=== PATIENT | male | born 1965 | race Two or more races ===

== ENCOUNTER 2018-10-12 00:24 | Emergency (ER) | payer BC ==
[2018-10-12] MEDS ORDERED: MAG HYDROX/AL HYDROX/SIMETH 30 ML UNIT-DOSE CUP PO ONE (00:36)
[2018-10-12] MEDS ORDERED: FAMOTIDINE 20 MG/50 ML IVPB 20 MG/50 ML MG IVPB ONE ×2 (00:36→00:45)
[2018-10-12] MEDS ORDERED: ACETAMINOPHEN 1000 MG/100 ML VIAL (NON FORMULARY) IVPB ONE (00:36)
--- NOTE | 2018-10-12 00:42 | PDOC ---
History of Present Illness - General History Source: Patient Exam Limitations: Clinical Condition - History of Present Illness Initial Comments: 10/12/18 00:37 Patient with no significant past medical history present with complaint of 2 hours history of tightening midsternal chest pain after doing situps and pushup exercises on home. Patient reported pain is similar to pains he usually get when he does work out but worsening this time after doing a workout home. Patient reported pain is localized to midsternal left chest area. Patient denies nausea, vomiting, numbness or tingling sensation, headache or dizziness. Timing/Duration: 1-3 hours <Oswaldo Lopez - Last Filed: 10/12/18 05:10> <Jairo Johnson - Last Filed: 10/12/18 06:40> - General Chief Complaint: Chest Pain Stated Complaint: CHEST PAIN Time Seen by Provider: 10/12/18 00:31 Past History <Oswaldo Lopez - Last Filed: 10/12/18 05:10> <Jairo Johnson - Last Filed: 10/12/18 06:40> - Past Medical History Allergies/Adverse Reactions: Allergies Allergy/AdvReac Type Severity Reaction Status Date / Time No Known Allergies Allergy Verified 10/12/18 00:28 Review of Systems - Review of Systems Able to Perform ROS?: Yes Is the patient limited Prydeinig proficient: No Constitutional: No: Weakness HEENTM: No: Recent change in vision Cardiac (ROS): Yes: Symptoms Reported, See HPI, Chest Pain (mid-sternum and left chest), Chest Tightness (left chest area). No: Edema, Irregular Heart Rate , Lightheadedness, Palpitations, Syncope, Other ABD/GI: No: Nausea, Vomiting Neurological: Yes: See HPI. No: Headache, Numbness, Paresthesia, Tingling, Dizziness All Other Systems: Reviewed and Negative <Oswaldo Lopez - Last Filed: 10/12/18 05:10> *Physical Exam - Physical Exam Comments: 10/12/18 00:40 GENERAL: Well developed, well nourished. Awake and alert. No acute distress. HEENT: Normocephalic, atraumatic.No conjunctival pallor. Sclera are non-icteric. NECK: Supple. Full ROM. No JVD. Carotid pulses 2+ and symmetric, without bruits. CARDIOVASCULAR: mild reproduceable tenderness to lower mid-sterm. Regular rate and rhythm. No murmurs, rubs, or gallops. Distal pulses are 2+ and symmetric. PULMONARY: No evidence of respiratory distress. Lungs clear to auscultation bilaterally. No wheezing, rales or rhonchi. ABDOMINAL: Soft. Non-tender. Non-distended. No rebound or guarding. No organomegaly. Normoactive bowel sounds. MUSCULOSKELETAL Normal range of motion at all joints. EXTREMITIES: No cyanosis. No clubbing. No edema. SKIN: Warm and dry. Normal capillary refill. NEUROLOGICAL: Alert, awake, appropriate. Normal speech. Gait is normal without ataxia. PSYCHIATRIC: Cooperative. Good eye contact. Appropriate mood and affect. General Appearance: Yes: Nourished, Appropriately Dressed. No: Apparent Distress <Oswaldo Lopez - Last Filed: 10/12/18 05:10> - Vital Signs Last Vital Signs Temp Pulse Resp BP Pulse Ox 98.1 F 76 18 156/107 H 100 10/12/18 00:24 10/12/18 03:21 10/12/18 03:21 10/12/18 03:21 10/12/18 03:21 <Jairo Johnson - Last Filed: 10/12/18 06:40> Moderate Sedation - Procedure Monitoring Vital Signs: Procedure Monitoring Vital Signs Temperature 98.1 F 10/12/18 00:24 Pulse Rate 76 10/12/18 03:21 Respiratory Rate 18 10/12/18 03:21 Blood Pressure 156/107 H 10/12/18 03:21 O2 Sat by Pulse Oximetry (%) 100 10/12/18 03:21 <Jairo Johnson - Last Filed: 10/12/18 06:40> ED Treatment Course - LABORATORY CBC & Chemistry Diagram: 10/12/18 00:34 10/12/18 01:07 <Oswaldo Lopez - Last Filed: 10/12/18 05:10> - LABORATORY CBC & Chemistry Diagram: 10/12/18 00:34 10/12/18 01:07 - ADDITIONAL ORDERS Additional order review: Laboratory Results 10/12/18 10/12/18 10/12/18 03:21 01:07 00:34 Sodium 137 Cancelled Potassium 4.5 Cancelled Chloride 102 Cancelled Carbon Dioxide 30 Cancelled Anion Gap 6 L Cancelled BUN 19 H Cancelled Creatinine 1.1 Cancelled Creat Clearance w eGFR > 60 Cancelled Random Glucose 106 Cancelled Calcium 9.2 Cancelled Total Bilirubin 0.6 Cancelled AST 27 Cancelled ALT 44 Cancelled Alkaline Phosphatase 58 Cancelled Creatine Kinase 398 H Creatine Kinase Index 0.8 CK-MB (CK-2) 3.3 Troponin I < 0.02 < 0.02 Cancelled Total Protein 7.6 Cancelled Albumin 3.9 Cancelled 10/12/18 00:34 RBC 5.40 MCV 86.2 MCHC 33.8 RDW 13.9 MPV 9.2 Neutrophils % 70.4 Lymphocytes % 21.4 Monocytes % 6.3 Eosinophils % 1.4 Basophils % 0.5 - RADIOLOGY Radiology Studies Ordered: Category Date Time Status CXRPORT [CHEST X-RAY PORTABLE*] [RAD] Stat Radiology 10/12/18 00:30 Taken - Medications Given in the ED: ED Medications Discontinued Medications Generic Name Dose Route Start Last Admin Trade Name Joeyq PRN Reason Stop Dose Admin Acetaminophen 1,000 mg 10/12/18 00:36 10/12/18 00:54 Ofirmev Injection - IVPB 10/12/18 00:37 1,000 mg ONCE ONE Administration Al Hydroxide/Mg Hydroxide 30 ml 10/12/18 00:36 10/12/18 00:54 Mylanta Oral Suspension - PO 10/12/18 00:37 30 ml ONCE ONE Administration Famotidine/Sodium Chloride 20 mg in 50 mls @ 100 mls/hr 10/12/18 00:36 01:26 Pepcid 20 Mg Premixed Ivpb - IVPB 10/12/18 01:05 100 mls/hr ONCE ONE Administration <Jairo Johnson - Last Filed: 10/12/18 06:40> Medical Decision Making - Medical Decision Making 10/12/18 00:42 She with no significant past medication present with complaint of 2 hour history of midsternal left chest pain after doing workout exercise home. Exam significant for reproducible mild midsternal Pain otherwise unremarkable exam. EKG shows normal sinus rhythm. Patient in no acute cardiac distress. CBC, CMP and cardiac profile ordered. Chest x-ray ordered. Tylenol 1 g IV ordered for pain. Pepcid 20 mg IV and Maalox 30 mL ordered. Treat based on imaging lab results 10/12/18 02:38 CBC, chemistry and cardiac profile normal. CXR shows no acute pathology. Patient report feeling better with IV Tylenol with pepcis and maalox. Will repeat cardiac profile 2nd lab 3hrs apart. Patient symptoms likely MSK and will be discharge on NSAIDS if negative rpt cardiac profile 10/12/18 04:25 repeat troponins negative. Patient report improved symptoms and stable for discharge <Oswaldo Lopez - Last Filed: 10/12/18 05:10> - Medical Decision Making I reviewed the case of the mid-level practitioner and was available for consultation while in the emergency department <Jairo Johnson - Last Filed: 10/12/18 06:40> *DC/Admit/Observation/Transfer - Discharge Dispostion Decision to Admit order: No <Oswaldo Lopez - Last Filed: 10/12/18 05:10> <Jairo Johnson - Last Filed: 10/12/18 06:40> Diagnosis at time of Disposition: Costochondral chest pain - Discharge Dispostion Disposition: HOME Condition at time of disposition: Stable - Referrals Referrals: Lisa Childress MD [Primary Care Provider] - - Patient Instructions Printed Discharge Instructions: DI for Costochondritis, DI for Chest Pain Additional Instructions: Your labs and EKG was normal. Your symptom is most likely musculoskeletal related. Take motrin as needed for pain. Rest. Come back to ER if worsening chest pain, shortness of breathe, dizziness, Headache
[2018-10-12 00:44] VITALS: TEMP 98.1; BMI 33.2
[2018-10-12] MEDS ORDERED: ACETAMINOPHEN INJECTION 100 ML IVPB ONE (00:45)
[2018-10-12 00:47] LABS: BASO % 0.5 % (0-2.0); EOS % 1.4 % (0-4.5); HEMATOCRIT 46.6 % (35.4-49); HEMOGLOBIN 15.7 GM/dL (11.7-16.9); LYMPH % 21.4 % (8-40); MCH 29.1 pg (25.7-33.7); MCHC 33.8 g/dl (32.0-35.9); MEAN CELL VOLUME 86.2 fl (80-96); MEAN PLT VOLUME 9.2 fl (7.5-11.1); MONO % 6.3 % (3.8-10.2); NEUT % 70.4 % (42.8-82.8); PLATELET COUNT 205 K/MM3 (134-434); RDW 13.9 % (11.9-15.9); WHITE BLOOD COUNT 10.3 K/mm3 (4.0-10.0)
[2018-10-12] MEDS ORDERED: MAG HYDROX/AL HYDROX/SIMETH 30 ML UNIT-DOSE CUP ONE (00:52)
[2018-10-12 01:55] LABS: ALBUMIN 3.9 g/dl (3.4-5.0); ALK PHOS 58 U/L (45-117); ANION GAP 6 MMOL/L (8-16); BILIRUBIN,TOTAL 0.6 mg/dL (0.2-1); BLOOD UREA NITROGEN 19 mg/dL (7-18); CALCIUM 9.2 mg/dL (8.5-10.1); CHLORIDE 102 mmol/L (98-107); CO2 30 mmol/L (21-32); CREATININE 1.1 mg/dL (0.55-1.3); GLUCOSE,RANDOM 106 mg/dL (74-106); POTASSIUM 4.5 mmol/L (3.5-5.1); SGOT/AST 27 U/L (15-37); SGPT/ALT 44 U/L (13-61); SODIUM 137 mmol/L (136-145); TOT PROT 7.6 g/dl (6.4-8.2)
[2018-10-12 03:23] VITALS: BP 156/107; PULSE 76
--- NOTE | 2018-10-13 19:06 | EKG ---
Test Reason : Blood Pressure : / mmHG Vent. Rate : 099 BPM Atrial Rate : 099 BPM P-R Int : 134 ms QRS Dur : 078 ms QT Int : 356 ms P-R-T Axes : 022 -20 006 degrees QTc Int : 456 ms NORMAL SINUS RHYTHM MINIMAL VOLTAGE CRITERIA FOR LVH, MAY BE NORMAL VARIANT BORDERLINE ECG NO PREVIOUS ECGS AVAILABLE Confirmed by DIANA WILKERSON MD ([id number]) on 10/13/2018 7:06:17 PM Referred By: Confirmed By:DIANA WILKERSON MD
== END 2018-10-12 04:26 | disposition home or self-care (01) ==
LOC: JER 00:24
PROC: 3E033GC Introduction of Other Therapeutic Substance into Peripheral Vein, Percutaneous Approach (ICD-10-PCS; principal; 2018-10-12)
PROC: 3E033NZ Introduction of Analgesics, Hypnotics, Sedatives into Peripheral Vein, Percutaneous Approach (ICD-10-PCS; 2018-10-12)
DX: M94.0 Chondrocostal junction syndrome [Tietze] (principal); X50.0XXA Overexertion from strenuous movement or load, initial encounter; Y93.B2 Activity, push-ups, pull-ups, sit-ups; Y92.038 Other place in apartment as the place of occurrence of the external cause; Y99.8 Other external cause status
CPT/HCPCS: 36415; 71045-TC-FY; 80053; 82550; 82553; 84484; 85025; 93005; 93010; 99284-25; J0131

== ENCOUNTER 2024-11-22 20:28 | Observation (INO) | payer BC, OTHER ==
[2024-11-22] MEDS ORDERED: ALPRAZolam 1 MG TABLET PO PRN (22:14)
[2024-11-22] MEDS ORDERED: ALPRAZolam 0.25 MG TABLET ONE ×2 (22:15→23:48)
[2024-11-22] MEDS: ALPRAZolam 1 MG TABLET PO ONE ×2 (22:20→23:51)
[2024-11-22 22:31] LABS: HEMATOCRIT 46.9 % (35.4-49); HEMOGLOBIN 16.6 G/dL (11.7-16.9); MCH 30.7 pg (25.7-33.7); MCHC 35.3 g/dl (32.0-35.9); MEAN CELL VOLUME 87.1 fl (80-96); MEAN PLT VOLUME 9.2 fl (7.5-11.1); PLATELET COUNT 253.9 10^3/uL (134-434); RBC 5.39 10^6/uL (4.00-5.60); RDW 13.6 % (11.9-15.9); WHITE BLOOD COUNT 10.2 10^3/uL (4.0-10.8)
[2024-11-22 22:49] LABS: INR 1.08 (0.83-1.09); PROTHROMBIN TIME (PATIENT) 12.3 SEC (9.7-13.0)
[2024-11-22 22:52] LABS: ACTIVATED PTT 35.1 SECONDS (25.2-36.5)
[2024-11-22 22:58] LABS: CHOLESTEROL 236 mg/dL (50-200); HDL CHOLESTEROL 42 mg/dL (40-60)
[2024-11-22 23:00] LABS: ALBUMIN 4.6 g/dl (3.4-5.0); BILIRUBIN,TOTAL 0.8 mg/dl (0.2-1); CALCIUM 9.8 mg/dl (8.5-10.1); POTASSIUM 4.3 mmol/L (3.5-5.1); TOT PROT 8.3 g/dl (6.4-8.2)
[2024-11-22 23:01] LABS: LDL CHOLESTEROL (ONLY SJRH) 171 mg/dL (5-100)
[2024-11-23 01:42] VITALS: BMI 34.0
[2024-11-23 07:37] LABS: ALBUMIN 4.2 g/dl (3.4-5.0); BILIRUBIN,TOTAL 0.6 mg/dl (0.2-1); CALCIUM 9.8 mg/dl (8.5-10.1); CREATININE 2.1 mg/dl (0.6-1.3); POTASSIUM 3.9 mmol/L (3.5-5.1); TOT PROT 7.4 g/dl (6.4-8.2)
[2024-11-23 09:38] LABS: BASO % 0.3 % (0-2.0); EOS % 1.5 % (0-4.5); HEMATOCRIT 45.9 % (35.4-49); HEMOGLOBIN 15.1 GM/dL (11.7-16.9); LYMPH % 16.7 % (8-40); MCH 29.2 pg (25.7-33.7); MEAN CELL VOLUME 88.4 fl (80-96); MEAN PLT VOLUME 10.5 fl (7.5-11.1); MONO % 10.8 % (3.8-10.2); NEUT % 70.7 % (42.8-82.8); PLATELET COUNT 252 10^3/uL (134-434); RBC 5.19 M/mm3 (4.00-5.60); WHITE BLOOD COUNT 13.3 K/mm3 (4.0-10.0)
[2024-11-23] MEDS ORDERED: ASPIRIN 300 MG SUPP.RECT RC ONE (10:45)
[2024-11-23] MEDS: ASPIRIN 325 MG ENTERIC COATED TABLET (FP) PO ONE (10:53)
[2024-11-23] MEDS: ATORVASTATIN CA 80 MG TABLET (FP) PO ONE (10:53)
[2024-11-23] MEDS: ALPRAZolam 1 MG TABLET PO PRN (12:05)
[2024-11-23] MEDS: SODIUM CHLORIDE 0.45% 1,000 ML IV SCH (15:18)
[2024-11-23 16:27] LABS: URINE BARBITURATES NEGATIVE (NEGATIVE)
[2024-11-23 16:28] LABS: COCAINE, UR POSITIVE (NEGATIVE); METHADONE, UR NEGATIVE (NEGATIVE); PHENCYCLIDINE,URINE NEGATIVE (NEGATIVE); URINE AMPHETAMINES NEGATIVE (NEGATIVE); URINE BENZODIAZEPINES POSITIVE (NEGATIVE)
[2024-11-23 16:29] LABS: OPIATES, URI NEGATIVE (NEGATIVE)
[2024-11-23] MEDS ORDERED: LORazepam 1 MG TABLET ONE (17:30)
[2024-11-23] MEDS: LORazepam 1 MG TABLET PO PRN (17:31)
[2024-11-23 20:23] LABS: EPITHELIAL CELLS 0-5 /hpf
[2024-11-23] MEDS ORDERED: ATORVASTATIN CA 40 MG TABLET (FP) PO SCH (22:00)
[2024-11-24] MEDS: ASPIRIN COATED 81 MG TABLET.EC PO SCH (09:41)
[2024-11-24 10:36] LABS: BASO % 0.4 % (0-2.0); EOS % 2.1 % (0-4.5); HEMATOCRIT 43.5 % (35.4-49); LYMPH % 28.6 % (8-40); MCH 29.8 pg (25.7-33.7); MCHC 34.5 g/dl (32.0-35.9); MEAN CELL VOLUME 86.4 fl (80-96); MEAN PLT VOLUME 10.4 fl (7.5-11.1); MONO % 9.1 % (3.8-10.2); NEUT % 59.8 % (42.8-82.8); PLATELET COUNT 231 10^3/uL (134-434); RBC 5.03 M/mm3 (4.00-5.60); RDW 13.9 % (11.9-15.9); WHITE BLOOD COUNT 8.5 K/mm3 (4.0-10.0)
[2024-11-24] MEDS: LOSARTAN POTASSIUM 50 MG TABLET PO SCH (10:53)
[2024-11-24] MEDS: FLUTICASONE PROP 0.05% 16 GM NASAL SPRAY NS SCH (10:53)
[2024-11-24 11:18] LABS: ALBUMIN 4.3 g/dl (3.4-5.0); BILIRUBIN,TOTAL 0.9 mg/dl (0.2-1); CALCIUM 9.6 mg/dl (8.5-10.1); CREATININE 2.2 mg/dl (0.6-1.3); POTASSIUM 3.9 mmol/L (3.5-5.1); TOT PROT 7.6 g/dl (6.4-8.2)
[2024-11-24] MEDS ORDERED: SODIUM CHLORIDE 0.45% 1,000 ML IV SCH (11:24)
[2024-11-24] MEDS: LACTATED RINGERS SOLUTION 1,000 ML/1,000 ML INFUS.BAG IV SCH (12:41)
[2024-11-24] MEDS: ATORVASTATIN CA 80 MG TABLET (FP) PO SCH (21:18)
[2024-11-24] MEDS: MELATONIN 5 MG TABLETS PO PRN (21:19)
[2024-11-25 02:58] VITALS: RESP 18
[2024-11-25 08:38] LABS: ALBUMIN 4.3 g/dl (3.4-5.0); BILIRUBIN,TOTAL 1.1 mg/dl (0.2-1); CALCIUM 9.7 mg/dl (8.5-10.1); CREATININE 1.5 mg/dl (0.6-1.3); POTASSIUM 4.1 mmol/L (3.5-5.1); TOT PROT 7.3 g/dl (6.4-8.2)
[2024-11-25 09:31] VITALS: BP 128/72; PULSE 72; TEMP 97.3
[2024-11-25] MEDS: amLODIPine BESYLATE 5 MG TABLET (FP) PO SCH (09:33)
[2024-11-25 10:26] LABS: BASO % 0.4 % (0-2.0); EOS % 2.4 % (0-4.5); HEMATOCRIT 43.8 % (35.4-49); HEMOGLOBIN 14.9 GM/dL (11.7-16.9); LYMPH % 32.7 % (8-40); MCH 29.3 pg (25.7-33.7); MEAN CELL VOLUME 86.3 fl (80-96); MEAN PLT VOLUME 10.4 fl (7.5-11.1); MONO % 9.3 % (3.8-10.2); NEUT % 55.2 % (42.8-82.8); PLATELET COUNT 235 10^3/uL (134-434); RBC 5.08 M/mm3 (4.00-5.60); WHITE BLOOD COUNT 9.2 K/mm3 (4.0-10.0)
[2024-11-28 22:06] LABS: ANTIGLOMERULAR BASEMENT MEN.AB <0.2 units (0.0-0.9)
[2024-12-01 15:07] LABS: C-ANCA <1:20 titer (Neg:<1:20)
== END 2024-11-25 10:59 | disposition home or self-care (01) ==
LOC: FER 20:28 → FM/S 11-23 00:25 → UNDOADMOB 11-23 00:32 → FM/S 11-23 00:32
PROVIDERS: ADMIT Student in an Organized Health Care Education/Training Program
PROC: 3E0337Z Introduction of Electrolytic and Water Balance Substance into Peripheral Vein, Percutaneous Approach (ICD-10-PCS; principal; 2024-11-23)
DX: I63.9 Cerebral infarction, unspecified (principal); R80.9 Proteinuria, unspecified; E66.9 Obesity, unspecified; N17.9 Acute kidney failure, unspecified; I10 Essential (primary) hypertension; R20.2 Paresthesia of skin; Z72.0 Tobacco use; R41.9 Unspecified symptoms and signs involving cognitive functions and awareness
CPT/HCPCS: 0241U-QW; 36415; 70450-TC; 70551-TC; 76775-TC; 80053; 80061; 80307; 81003; 81015; 82570; 83036; 83516; 83520; 84156; 84300; 84443; 85025; 85027; 85610; 85730; 86038; 86160; 86225; 86256; 87086; 93005; 93306-TC; 93880-TC; 96360; 96361; 97116-GP; 97162-GP; 99285-25; G0378